=== PATIENT | male | born 1985 | race African-American/Black ===

== ENCOUNTER 2018-12-28 14:56 | Emergency (ER) | payer OTHER ==
[~2018-12-28] VITALS: Ht 180.3 cm; Wt 83.9 kg
[~2018-12-28 14:56] MED LIST: DOCU-109 PO; HYDR-3165 PO; ONDA4TAB10 SL; OXYC1TAB15 PO
[2018-12-28 15:21] VITALS: BP 147/92
[2018-12-28] MEDS ORDERED: TETRACAINE 0.5% OPHTH SOLUTION 4ML BOTTLE. OD ONE (15:45)
[2018-12-28] MEDS ORDERED: FLUORESCEIN OPHTH TEST STRIP. OD ONE (15:45)
[2018-12-28] MEDS ORDERED: HYDROcodone/APAP 5/325MG 1 TAB TABLET PO ONE (16:15)
[2018-12-28] MEDS ORDERED: DIPHTH,PERTUSS(ACELL),TET TOX 0.5 ML DISP.SYRIN. VAX IM ONE (16:15)
[2018-12-28] MEDS ORDERED: ERYT1OIN6 OP (16:45)
[2018-12-28] MEDS ORDERED: HYDR-3164 PO (16:45)
--- NOTE | 2018-12-28 16:46 | PHYS DOC ---
Past Medical History Past Medical History: No Pertinent History Past Surgical History: Other Additional Past Surgical Histo: RIGHT ANKLE Alcohol Use: None Drug Use: None Adult General Chief Complaint Chief Complaint: EYE PROBLEMS HPI HPI Patient is a 33 year old male who presents to the ED today with foreign object to the left eye. Patient is currently at the local [facility], was welding, he believes a metal speck flew into his right eye. He did have eye gargles on denies any vision loss. Patient has two guards. Review of Systems Review of Systems Constitutional: Denies fever or chills [] Eyes: Pupils foreign object to the left eye. Denies change in visual acuity, Musculoskeletal: Denies back pain or joint pain [] Integument: Denies rash or skin lesions [] Neurologic: Denies headache, focal weakness or sensory changes [] All other systems were reviewed and found to be within normal limits, except as documented in this note. Current Medications Current Medications Current Medications Medications (Trade) Dose Ordered Sig/[place] Start Time Stop Time Status Last Admin Dose Admin Acetaminophen/ Hydrocodone Bitart (Lortab 5/325) 2 tab 1X ONCE 12/28/18 16:15 12/28/18 16:16 DC Diphtheria/ Tetanus/Acell Pertussis (Boostrix) 0.5 ml ONCE ONCE 12/28/18 16:15 12/28/18 16:16 DC Fluorescein Sodium (Ful-Erin) 1 strip 1X ONCE 12/28/18 15:45 12/28/18 15:46 DC 12/28/18 15:53 1 STRIP Tetracaine HCl (Tetracaine) 1 drop 1X ONCE 12/28/18 15:45 12/28/18 15:46 DC 12/28/18 15:53 1 DROP Allergies Allergies Allergies Coded Allergies Type Severity Reaction Last Updated Verified ceftriaxone Allergy Intermediate 09/13/16 Yes sulfamethoxazole Allergy Intermediate 09/13/16 Yes trimethoprim Allergy Intermediate 09/13/16 Yes Physical Exam Physical Exam Constitutional: Well developed, well nourished, no acute distress, non-toxic appearance. [] HENT: Normocephalic, atraumatic, bilateral external ears normal, oropharynx moist, no oral exudates, nose normal. [] Eyes: PERRLA, EOMI, left conjunctiva is mildly injected, there is an obvious tiny foreign object suspicious of a metal speck at approximately 12:30 position on the cornea. Skin: Warm, dry, no erythema, no rash. [] Back: No tenderness, no CVA tenderness. [] Extremities: No tenderness, no cyanosis, no clubbing, ROM intact, no edema. [] Neurologic: Alert and oriented X 3, normal motor function, normal sensory function, no focal deficits noted. [] Psychologic: Affect normal, judgement normal, mood normal. [] Current Patient Data Vital Signs Vital Signs Date Time Temp Pulse Resp B/P (MAP) Pulse Ox O2 Delivery O2 Flow Rate FiO2 12/28/18 15:21 97.0 76 16 147/92 (110) 99 Room Air 97.0 EKG EKG [] Radiology/Procedures Radiology/Procedures Indication: Metal speck to the left eye Procedure: The area of the foreign body was left conjunctiva. Local anesthesia over the foreign body site was 2 drops of tetracaine. The foreign body was then removed with a travis. After the procedure [DRESSING:]. The patient's tetanus status [TETANUS STATUS:]. The patient tolerated the procedure very well Complications: none Course & Med Decision Making Course & Med Decision Making Pertinent Labs and Imaging studies reviewed. (See chart for details) This is a 33-year-old male patient presenting to the ED today with a metal speaking in the left eye. Patient was welding at the local [facility] and a piece of metal flew into his eye. I attempted to remove some of the metal speck. Patient was discharged with erythromycin. Tetanus updated. Follow-up with flatwork presser next week. Dragon Disclaimer Dragon Disclaimer This electronic medical record was generated, in whole or in part, using a voice recognition dictation system. Departure Departure Impression: Primary Impression: Foreign body in cornea, left eye, initial encounter Disposition: HOME, SELF-CARE Condition: STABLE Referrals: LILA ROJAS (PCP) MIL SUAREZ MD follow up on Sunday with your eye doctor Patient Instructions: Eye - Corneal Foreign Body Additional Instructions: You were evaluated in the emergency room for a foreign object likely a piece of metal in your eye. We did attempt to remove it. You will have the sensation of a foreign object to the left eye due to the procedure of removing the foreign object and there is always a chance some of the metal might still be in the eye. We highly recommend you follow-up with the flatwork presser on Sunday. You can patch the affected eye if it's uncomfortable. Use the medicines prescribed as ordered. Scripts Hydrocodone/Apap 5-325 (NORCO 5-325 TABLET) 1 Each Tablet 1 TAB PO Q4-6HRS PRN for PAIN, #12 TAB Prov: KILO ESCOBAR APRN 12/28/18 Erythromycin Base (Erythromycin) 1 Gm Oint...g. 1 APPLIC OP Q4HRS W/A, #1 MISC 1/2 inch to the affected eye every 4 hours while awake for 7 days Prov: KILO ESCOBAR APRN 12/28/18 KILO ESCOBAR APRN Dec 28, 2018 16:46
== END 2018-12-28 16:54 | disposition home or self-care (01) ==
LOC: ER 14:56 → EEVIPCON 14:56 → ER 16:54
DX: T15.02XA Foreign body in cornea, left eye, initial encounter (principal); Z88.1 Allergy status to other antibiotic agents; Z88.2 Allergy status to sulfonamides; X58.XXXA Exposure to other specified factors, initial encounter; Y93.89 Activity, other specified; Y92.89 Other specified places as the place of occurrence of the external cause; Y99.8 Other external cause status
CPT/HCPCS: 65220; 90471; 90715; 99284